=== PATIENT | male | born 1950 ===

== ENCOUNTER 2018-02-01 23:50 | Observation (INO) | payer OTHER, MEDICARE ==
[2018-02-02 01:04] VITALS: BMI 35.6
[2018-02-02] MEDS ORDERED: Dextrose 50% SYRINGE Inj (50 ml) IV PRN (01:04)
[2018-02-02] MEDS ORDERED: Ergocalciferol 50,000 Intl Units Cap PO SCH (01:15)
[2018-02-02] MEDS ORDERED: Heparin25000 units/250ml 1/2NS 25,000 UNITS/250 ML BAG IV SCH (01:15)
[2018-02-02 01:52] LABS: BASO # 0.02 K/mm3 (0.0-2.0); BASO % 0.2 % (0.0-3.0); EOS # 0.2 (0.0-0.7); EOS % 2.8 % (1.5-5.0); GRAN # 4.7 (1.4-6.5); GRAN % 56.6 % (50.0-68.0); HEMOGLOBIN 14.5 g/dL (14.0-18.0); LYMPH # 2.5 (1.2-3.4); LYMPH % 30.4 % (22.0-35.0); MEAN CELL VOLUME 83.7 fl (80.0-105.0); MEAN CORPUSCULAR HEMOGLOBIN 29.2 pg (25.0-35.0); MEAN CORPUSCULAR HGB CONC 34.9 g/dl (31.0-37.0); MEAN PLATELET VOLUME 8.8 fl (7.0-11.0); MONO # 0.8 (0.1-0.6); RBC 4.97 10^6/uL (3.5-6.1); RED CELL DISTRIBUTION WIDTH 14.2 % (11.5-14.5); WHITE BLOOD COUNT 8.3 10^3/ul (4.5-11.0)
[2018-02-02 02:03] LABS: ALB/GLOB RATIO 1.4 (1.1-1.8); ALBUMIN 4.4 g/dL (3.0-4.8); ALT/SGPT 36 U/L (7-56); AST/SGOT 56 U/L (17-59); BLOOD UREA NITROGEN 19 mg/dL (7-21); CALCIUM 9.9 mg/dL (8.4-10.5); GFR AFRICAN-AMERICAN > 60; GFR NON-AFRICAN AMERICAN > 60
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
[2018-02-02] MEDS ORDERED: Dextrose 50% SYRINGE Inj (50 ml) ONE (05:22)
[2018-02-02] MEDS ORDERED: Lidocaine 2% Inj (20ml) ONE (06:38)
[2018-02-02] MEDS ORDERED: Iodixanol 320 MG/ML 100 ML BOTTLE IV ONE (06:39)
[2018-02-02] MEDS ORDERED: Iodixanol 320 MG/ML 200 ML BOTTLE IV ONE (06:39)
[2018-02-02] MEDS ORDERED: Iohexol 350mgl/ml 50 ML ONE (06:39)
[2018-02-02] MEDS ORDERED: Phenylephrine 10 mg/ml Inj ONE (06:41)
[2018-02-02] MEDS ORDERED: Verapamil 2 ML ONE (06:41)
[2018-02-02] MEDS ORDERED: Nitroglycerin 50mg in D5W 50 MG/250 ML BOTTLE IV ONE (06:42)
[2018-02-02] MEDS ORDERED: Adenosine 90 mg/30mL IV ONE (06:49)
[2018-02-02] MEDS ORDERED: Midazolam 2 MG/2 ML VIAL ONE ×2 (07:28→07:33)
[2018-02-02] MEDS ORDERED: Insulin Lispro (humaLOG) MEDIUM Coverage SC SCH (07:30)
--- NOTE | 2018-02-02 09:03 | PCM.BM ---
- Diagnosis (1) NSTEMI (non-ST elevated myocardial infarction) Status: Acute Interventions: 02/02/18 09:00 PTCA/THOM of mid 99% stenosis with 2.5x22 [place] THOM ( post dilatation with 3.0x15 NC balloon ) ( lesion reduction down from 99% down to 0% ) IVUS guided PTCA/THOM of proximal 75% stenosis with 3.5x22 [place] THOM ( lesion reduction from 75% down to 0% ) IVUS/FFR interrogation of proximal LAD ( FFR 0.84 physiologically non- significant , MLA 3.6 mm2 ) DAPT x 1 year GDMT for CAD ( BB, statins, nitrates , acei ) transfer to [facility] in 3 hours
[2018-02-02] MEDS ORDERED: Bacitracin 500 Units/gm Oint Foilpak UD TOP ONE ×2 (09:15→09:19)
--- NOTE | 2018-02-02 11:36 | CARDCATH ---
Copied To: Modesto Bryant MD Attending MD: Modesto Bryant MD PROCEDURE DATE: 02/02/2018 INDICATIONS: Mr. Wolf Dorman is a 67-year-old male who presented to [facility] with complaints of ongoing episodes of chest pain, intermittent in nature for 10 days prior to presentation, associated with shortness of breath, described as pressure-like sensation, 8/10 in intensity, radiating to the left shoulder and neck area. He was ruled in for acute coronary syndrome with [id number] [place] and positive troponins. He was subsequently transferred over to [facility] for urgent cardiac catheterization. PROCEDURE PERFORMED: Left heart catheterization with selective left and right coronary angiogram via left radial arterial approach, 6-Yi left radial arterial access. IVUS and FFR of left anterior descending artery: FFR physiologically nonsignificant at 0.84. IVUS minimal luminal area of 3.6 mm2. IVUS and PCI of proximal and mid RCA. Mid RCA 95% stenosis, deployment of two 5 x 22 Dayday drug-eluting stent post dilatation with a three noncompliant balloon. Regeneration from 90% down to 0% HAZEL-3 flow. IVUS of proximal RCA, high grade, 80% stenosis. Deployment of three 5 x 22 Dayday drug-eluting stent, regeneration down to 0% HAZEL-3 flow. Wrist band for hemostasis. ANGIOGRAPHIC FINDINGS: Left main large-sized vessel, bifurcates into LAD and circ. Left anterior descending is a large-sized vessel, has a proximal 65% stenosis at the bifurcation of the diagonal, proximal ruptured plaque, calcified lesion. IVUS showed minimal luminal area of 3.6. FFR physiologically nonsignificant at 0.84. Diagonal ostial has 65% stenosis. Diag 2 nonobstructed. Distal LAD 60% stenosis. Mid LAD 0% stenosis. Left circumflex, large-sized vessel, runs in the groove, free of any obstructive disease, gave off two medium-size obtuse marginal branches. RCA proximal 80% stenosis. IVUS confirmed minimal luminal area less than 3. Mid RCA 95% stenosis. INTERVENTION: JR4 guide was used to engage the right coronary system. Lesion was crossed with a [place] wire, predilated with a 2 balloon, stented with a 2.5 x 22 mm [place] drug-eluting stent. IVUS, which showed undersized stent at this point was postdilated with a 3 noncompliant balloon. Proximal RCA high-grade lesion stented with a 3.5 x 22 mm Dayday drug-eluting stent. Final angiogram done, regeneration down to 0% HAZEL-3 flow. Subsequently, JL4 guide was used to engage the left coronary system. FFR wire was used to cross the LAD. Interrogation with showed physiologically nonsignificant 0.84. Because of significant haziness, IVUS interrogation of the LAD was done, which showed minimal luminal area of 3.6 and a ruptured plaques. IMPRESSION: Moderate left anterior descending stenosis, physiologically nonsignificant at 0.84. Intracoronary vascular ultrasound interrogation shows minimal luminal area of 3.6. Successful percutaneous transluminal coronary angioplasty, stenting of proximal and mid right coronary artery, deployment of two drug-eluting stents. Normal ejection fraction. RECOMMENDATIONS: Continue dual antiplatelet therapy for one year. Guideline-directed therapy for coronary artery disease. The patient can be transferred back to [facility] in three hours. Modesto Bryant MD cc: Facundo Belle MD in [place]
--- NOTE | 2018-02-02 12:43 | CP.CCUPN ---
<Lisa Whittaker - Last Filed: 02/02/18 12:40> CCU Subjective - Physician Review Events Since Last Encounter (Free Text): Lisa Whittaker, PGY-1 ICU Progress Note Patient seen and examined at bedside. He had successful stenting of proximal and mid RCA with 2 drug eluding stents. Normal EF. Pending transfer to [facility]. Denies CP, SOB, abdominal pain, and urinary complaints. 12 point ROS noted here , otherwise negative. CCU Objective - Vital Signs / Intake & Output Vital Signs (Last 4 hours): Vital Signs Temp Pulse Resp BP Pulse Ox 02/02/18 11:00 98 F 70 14 125/78 98 02/02/18 10:50 70 14 97 02/02/18 10:45 72 12 133/82 98 02/02/18 10:40 70 13 98 02/02/18 10:30 73 12 124/80 100 02/02/18 10:20 78 16 99 02/02/18 10:16 75 11 L 114/51 L 98 02/02/18 10:10 72 98 02/02/18 10:00 71 13 113/84 98 02/02/18 09:50 73 16 97 02/02/18 09:45 71 15 124/84 97 02/02/18 09:44 72 17 99 02/02/18 09:40 70 11 L 98 02/02/18 09:34 72 15 121/78 98 02/02/18 09:30 72 12 99 02/02/18 09:20 70 11 L 97 02/02/18 09:10 68 12 118/78 98 02/02/18 09:09 76 27 H 95 02/02/18 09:00 98.0 F Intake and Output (Last 8hrs): Intake & Output 02/01/18 02/02/18 02/02/18 22:59 06:59 14:59 Intake Total 120 Output Total 700 Balance -580 Weight 214 lb 2 oz Intake: IV 120 Left Antecubital 120 Output: Urine 700 Urine, Voided 700 - Physical Exam Head: Positive for: Atraumatic, Normocephalic Pupils: Positive for: PERRL Extroacular Muscles: Positive for: EOMI Mouth: Positive for: Moist Mucous Membranes Neck: Positive for: Normal Range of Motion Respiratory/Chest: Positive for: Clear to Auscultation, Good Air Exchange. Negative for: Wheezes Cardiovascular: Positive for: Regular Rate and Rhythm, Normal S1, S2, Peripheal Pulses Present Abdomen: Positive for: Normal Bowel Sounds. Negative for: Tenderness, Distention, Rebound, Guarding Back: Positive for: Normal Inspection. Negative for: CVA Tenderness Upper Extremity: Positive for: Normal Inspection, NORMAL PULSES Lower Extremity: Positive for: Normal Inspection. Negative for: Edema Neurological: Positive for: CN II-XII Intact, Speech Normal Skin: Positive for: Warm, Normal Color Psychiatric: Positive for: Alert, Normal Insight - Medications Active Medications: Active Medications Generic Name Dose Route Start Last Admin Trade Name Freq PRN Reason Stop Dose Admin Aspirin 81 mg 02/02/18 10:00 02/02/18 11:19 Aspirin Chewable PO 81 mg DAILY FADI Administration Atorvastatin Calcium 40 mg 02/02/18 17:00 Lipitor PO DIN FADI Dextrose 0 ml 02/02/18 01:04 Dextrose 50% Inj IV STAT PRN Hypoglycemia Protocol Protocol Ergocalciferol 1 cap 02/02/18 01:15 02/02/18 02:07 Drisdol 50,000 Intl Units Cap PO Not Given Q7D FADI Fenofibrate 145 mg 02/02/18 10:00 02/02/18 11:19 Tricor PO 145 mg DAILY FADI Administration Dextrose 1,000 mls @ 0 mls/hr 02/02/18 01:04 Dextrose 5% In Water 1000 Ml IV .Q0M PRN Hypoglycemia Protocol Protocol Per Protocol Insulin Human Lispro 0 units 02/02/18 07:30 02/02/18 12:05 Humalog Med SC Not Given ACHS FADI Protocol Loratadine 10 mg 02/02/18 10:00 02/02/18 11:19 Claritin PO 10 mg DAILY FADI Administration Metoprolol Tartrate 25 mg 02/02/18 07:30 Lopressor PO BRKDIN FADI Montelukast Sodium 10 mg 02/02/18 22:00 Singulair PO HS FADI - Patient Studies Lab Studies: Lab Studies 02/02/18 02/02/18 02/02/18 Range/Units 09:23 01:30 01:30 WBC (4.5-11.0) 10^3/ul RBC (3.5-6.1) 10^6/uL Hgb (14.0-18.0) g/dL Hct (42.0-52.0) % MCV (80.0-105.0) fl MCH (25.0-35.0) pg MCHC (31.0-37.0) g/dl RDW (11.5-14.5) % Plt Count (120.0-450.0) 10^3/uL MPV (7.0-11.0) fl Gran % (50.0-68.0) % Lymph % (Auto) (22.0-35.0) % [place] % (Auto) (1.0-6.0) % Eos % (Auto) (1.5-5.0) % Baso % (Auto) (0.0-3.0) % Gran # (1.4-6.5) Lymph # (Auto) (1.2-3.4) [place] # (Auto) (0.1-0.6) Eos # (Auto) (0.0-0.7) Baso # (Auto) (0.0-2.0) K/mm3 APTT 51.3 H (25.1-36.5) Seconds Sodium 140 (132-148) mmol/L Potassium 4.3 (3.6-5.0) mmol/L Chloride 102 (98-107) mmol/L Carbon Dioxide 29 (21-33) mmol/L Anion Gap 14 (10-20) BUN 19 (7-21) mg/dL Creatinine 1.1 (0.8-1.5) mg/dl Est GFR ( Amer) > 60 Est GFR (Non-Af Amer) > 60 POC Glucose (mg/dL) 152 H (65-110) mg/dL Random Glucose 153 H (70-110) mg/dL Calcium 9.9 (8.4-10.5) mg/dL Phosphorus 4.1 (2.5-4.5) mg/dL Magnesium 2.1 (1.7-2.2) mg/dL Total Bilirubin 0.7 (0.2-1.3) mg/dL AST 56 (17-59) U/L ALT 36 (7-56) U/L Alkaline Phosphatase 79 (38-126) U/L Total Protein 7.5 (5.8-8.3) g/dL Albumin 4.4 (3.0-4.8) g/dL Globulin 3.1 gm/dL Albumin/Globulin Ratio 1.4 (1.1-1.8) 02/02/18 Range/Units 01:30 WBC 8.3 (4.5-11.0) 10^3/ul RBC 4.97 (3.5-6.1) 10^6/uL Hgb 14.5 (14.0-18.0) g/dL Hct 41.6 L (42.0-52.0) % MCV 83.7 (80.0-105.0) fl MCH 29.2 (25.0-35.0) pg MCHC 34.9 (31.0-37.0) g/dl RDW 14.2 (11.5-14.5) % Plt Count 333 (120.0-450.0) 10^3/uL MPV 8.8 (7.0-11.0) fl Gran % 56.6 (50.0-68.0) % Lymph % (Auto) 30.4 (22.0-35.0) % [place] % (Auto) 10.0 H (1.0-6.0) % Eos % (Auto) 2.8 (1.5-5.0) % Baso % (Auto) 0.2 (0.0-3.0) % Gran # 4.70 (1.4-6.5) Lymph # (Auto) 2.5 (1.2-3.4) [place] # (Auto) 0.8 H (0.1-0.6) Eos # (Auto) 0.2 (0.0-0.7) Baso # (Auto) 0.02 (0.0-2.0) K/mm3 APTT (25.1-36.5) Seconds Sodium (132-148) mmol/L Potassium (3.6-5.0) mmol/L Chloride (98-107) mmol/L Carbon Dioxide (21-33) mmol/L Anion Gap (10-20) BUN (7-21) mg/dL Creatinine (0.8-1.5) mg/dl Est GFR ( Amer) Est GFR (Non-Af Amer) POC Glucose (mg/dL) (65-110) mg/dL Random Glucose (70-110) mg/dL Calcium (8.4-10.5) mg/dL Phosphorus (2.5-4.5) mg/dL Magnesium (1.7-2.2) mg/dL Total Bilirubin (0.2-1.3) mg/dL AST (17-59) U/L ALT (7-56) U/L Alkaline Phosphatase (38-126) U/L Total Protein (5.8-8.3) g/dL Albumin (3.0-4.8) g/dL Globulin gm/dL Albumin/Globulin Ratio (1.1-1.8) Laboratory Results - last 24 hr 02/02/18 02/02/18 02/02/18 01:30 01:30 01:30 WBC 8.3 RBC 4.97 Hgb 14.5 Hct 41.6 L MCV 83.7 MCH 29.2 MCHC 34.9 RDW 14.2 Plt Count 333 MPV 8.8 Gran % 56.6 Lymph % (Auto) 30.4 [place] % (Auto) 10.0 H Eos % (Auto) 2.8 Baso % (Auto) 0.2 Gran # 4.70 Lymph # (Auto) 2.5 [place] # (Auto) 0.8 H Eos # (Auto) 0.2 Baso # (Auto) 0.02 APTT 51.3 H Sodium 140 Potassium 4.3 Chloride 102 Carbon Dioxide 29 Anion Gap 14 BUN 19 Creatinine 1.1 Est GFR ( Amer) > 60 Est GFR (Non-Af Amer) > 60 POC Glucose (mg/dL) Random Glucose 153 H Calcium 9.9 Phosphorus 4.1 Magnesium 2.1 Total Bilirubin 0.7 AST 56 ALT 36 Alkaline Phosphatase 79 Total Protein 7.5 Albumin 4.4 Globulin 3.1 Albumin/Globulin Ratio 1.4 02/02/18 09:23 WBC RBC Hgb Hct MCV MCH MCHC RDW Plt Count MPV Gran % Lymph % (Auto) [place] % (Auto) Eos % (Auto) Baso % (Auto) Gran # Lymph # (Auto) [place] # (Auto) Eos # (Auto) Baso # (Auto) APTT Sodium Potassium Chloride Carbon Dioxide Anion Gap BUN Creatinine Est GFR ( Amer) Est GFR (Non-Af Amer) POC Glucose (mg/dL) 152 H Random Glucose Calcium Phosphorus Magnesium Total Bilirubin AST ALT Alkaline Phosphatase Total Protein Albumin Globulin Albumin/Globulin Ratio Fingerstick Blood Sugar Results: 141 Critical Care Progress Note - Nutrition Nutrition: Nutrition Category Date Time Status Heart Healthy Diet [DIET] Diets 02/02/18 Lunch Active Assessment/Plan - Assessment and Plan (Free Text) Assessment: Assessment: 67 M with PMH of HT, HLD, DM2, transferred from [facility] under Dr Bryant for left heart cath today morning. 2 drug eluding stents placed in the RCA successfully and patient is doing well post operatively. Pending transfer to [facility]. Plan: Neuro: -maintain normothermia -AAO x3, moving extremities spontaneously past midline Cardio: -maintain MAP>65 -on metoprolol tartrate 25mg, lipitor, fenofibrate -cardio on consult, Dr Bryant Lungs: -SaO2 >90% -supplementary O2 PRN -on singulair Renal: -maintain euvolemia -avoid nephrotoxic agents, hypochloremia -replace electrolytes as needed -BUN/Cr is 19/1.1 WNL Heme: -Hg today is 14.5 WNL Endo: -maintain euglycemia -on insulin lispro ID: -WBC is 8.3 today WNL, afebrile <Zach Saldivar - Last Filed: 02/02/18 18:47> CCU Objective - Vital Signs / Intake & Output Intake and Output (Last 8hrs): Intake & Output 02/02/18 02/02/18 02/02/18 06:59 14:59 22:59 Intake Total 120 Output Total 700 Balance -580 Weight 214 lb 2 oz Intake: IV 120 Left Antecubital 120 Output: Urine 700 Urine, Voided 700 - Patient Studies Lab Studies: Lab Studies 02/02/18 02/02/18 02/02/18 Range/Units 11:17 09:23 07:50 WBC (4.5-11.0) 10^3/ul RBC (3.5-6.1) 10^6/uL Hgb (14.0-18.0) g/dL Hct (42.0-52.0) % MCV (80.0-105.0) fl MCH (25.0-35.0) pg MCHC (31.0-37.0) g/dl RDW (11.5-14.5) % Plt Count (120.0-450.0) 10^3/uL MPV (7.0-11.0) fl Gran % (50.0-68.0) % Lymph % (Auto) (22.0-35.0) % [place] % (Auto) (1.0-6.0) % Eos % (Auto) (1.5-5.0) % Baso % (Auto) (0.0-3.0) % Gran # (1.4-6.5) Lymph # (Auto) (1.2-3.4) [place] # (Auto) (0.1-0.6) Eos # (Auto) (0.0-0.7) Baso # (Auto) (0.0-2.0) K/mm3 APTT (25.1-36.5) Seconds Sodium (132-148) mmol/L Potassium (3.6-5.0) mmol/L Chloride (98-107) mmol/L Carbon Dioxide (21-33) mmol/L Anion Gap (10-20) BUN (7-21) mg/dL Creatinine (0.8-1.5) mg/dl Est GFR ( Amer) Est GFR (Non-Af Amer) POC Glucose (mg/dL) 149 H 152 H (65-110) mg/dL Random Glucose (70-110) mg/dL Hemoglobin A1c 7.7 H (4.2-6.5) % Calcium (8.4-10.5) mg/dL Phosphorus (2.5-4.5) mg/dL Magnesium (1.7-2.2) mg/dL Total Bilirubin (0.2-1.3) mg/dL AST (17-59) U/L ALT (7-56) U/L Alkaline Phosphatase (38-126) U/L Total Protein (5.8-8.3) g/dL Albumin (3.0-4.8) g/dL Globulin gm/dL Albumin/Globulin Ratio (1.1-1.8) 02/02/18 02/02/18 02/02/18 Range/Units 01:30 01:30 01:30 WBC 8.3 (4.5-11.0) 10^3/ul RBC 4.97 (3.5-6.1) 10^6/uL Hgb 14.5 (14.0-18.0) g/dL Hct 41.6 L (42.0-52.0) % MCV 83.7 (80.0-105.0) fl MCH 29.2 (25.0-35.0) pg MCHC 34.9 (31.0-37.0) g/dl RDW 14.2 (11.5-14.5) % Plt Count 333 (120.0-450.0) 10^3/uL MPV 8.8 (7.0-11.0) fl Gran % 56.6 (50.0-68.0) % Lymph % (Auto) 30.4 (22.0-35.0) % [place] % (Auto) 10.0 H (1.0-6.0) % Eos % (Auto) 2.8 (1.5-5.0) % Baso % (Auto) 0.2 (0.0-3.0) % Gran # 4.70 (1.4-6.5) Lymph # (Auto) 2.5 (1.2-3.4) [place] # (Auto) 0.8 H (0.1-0.6) Eos # (Auto) 0.2 (0.0-0.7) Baso # (Auto) 0.02 (0.0-2.0) K/mm3 APTT 51.3 H (25.1-36.5) Seconds Sodium 140 (132-148) mmol/L Potassium 4.3 (3.6-5.0) mmol/L Chloride 102 (98-107) mmol/L Carbon Dioxide 29 (21-33) mmol/L Anion Gap 14 (10-20) BUN 19 (7-21) mg/dL Creatinine 1.1 (0.8-1.5) mg/dl Est GFR ( Amer) > 60 Est GFR (Non-Af Amer) > 60 POC Glucose (mg/dL) (65-110) mg/dL Random Glucose 153 H (70-110) mg/dL Hemoglobin A1c (4.2-6.5) % Calcium 9.9 (8.4-10.5) mg/dL Phosphorus 4.1 (2.5-4.5) mg/dL Magnesium 2.1 (1.7-2.2) mg/dL Total Bilirubin 0.7 (0.2-1.3) mg/dL AST 56 (17-59) U/L ALT 36 (7-56) U/L Alkaline Phosphatase 79 (38-126) U/L Total Protein 7.5 (5.8-8.3) g/dL Albumin 4.4 (3.0-4.8) g/dL Globulin 3.1 gm/dL Albumin/Globulin Ratio 1.4 (1.1-1.8) Laboratory Results - last 24 hr 02/02/18 02/02/18 02/02/18 01:30 01:30 01:30 WBC 8.3 RBC 4.97 Hgb 14.5 Hct 41.6 L MCV 83.7 MCH 29.2 MCHC 34.9 RDW 14.2 Plt Count 333 MPV 8.8 Gran % 56.6 Lymph % (Auto) 30.4 [place] % (Auto) 10.0 H Eos % (Auto) 2.8 Baso % (Auto) 0.2 Gran # 4.70 Lymph # (Auto) 2.5 [place] # (Auto) 0.8 H Eos # (Auto) 0.2 Baso # (Auto) 0.02 APTT 51.3 H Sodium 140 Potassium 4.3 Chloride 102 Carbon Dioxide 29 Anion Gap 14 BUN 19 Creatinine 1.1 Est GFR ( Amer) > 60 Est GFR (Non-Af Amer) > 60 POC Glucose (mg/dL) Random Glucose 153 H Hemoglobin A1c Calcium 9.9 Phosphorus 4.1 Magnesium 2.1 Total Bilirubin 0.7 AST 56 ALT 36 Alkaline Phosphatase 79 Total Protein 7.5 Albumin 4.4 Globulin 3.1 Albumin/Globulin Ratio 1.4 02/02/18 02/02/18 02/02/18 07:50 09:23 11:17 WBC RBC Hgb Hct MCV MCH MCHC RDW Plt Count MPV Gran % Lymph % (Auto) [place] % (Auto) Eos % (Auto) Baso % (Auto) Gran # Lymph # (Auto) [place] # (Auto) Eos # (Auto) Baso # (Auto) APTT Sodium Potassium Chloride Carbon Dioxide Anion Gap BUN Creatinine Est GFR ( Amer) Est GFR (Non-Af Amer) POC Glucose (mg/dL) 152 H 149 H Random Glucose Hemoglobin A1c 7.7 H Calcium Phosphorus Magnesium Total Bilirubin AST ALT Alkaline Phosphatase Total Protein Albumin Globulin Albumin/Globulin Ratio Critical Care Progress Note - Nutrition Nutrition: Nutrition Category Date Time Status Heart Healthy Diet [DIET] Diets 02/02/18 Lunch Active Attending/Attestation - Attestation I have personally seen and examined this patient.: Yes I have fully participated in the care of the patient.: Yes I have reviewed all pertinent clinical information: Yes Notes (Text): 02/02/18 18:46 67 yo male with ACS, admitted to [facility] for cardiac cath, no s/p PCI. Continue DAP , bb, statins. stable for transfer back to [facility] ccm time 40 min
[2018-02-02 13:06] VITALS: TEMP 97
[2018-02-02 14:07] VITALS: BP 136/68; PULSE 79; RESP 18; O2SAT 96
== END 2018-02-02 18:15 | disposition short-term general hospital (02) ==
LOC: INTOOBSV 23:50 → OBSVTOIN 23:50 → CCU 23:50
PROVIDERS: ADMIT Internal Medicine; ATTEND Internal Medicine Interventional Cardiology
DX: I21.4 Non-ST elevation (NSTEMI) myocardial infarction (principal); I25.10 Atherosclerotic heart disease of native coronary artery without angina pectoris; E11.9 Type 2 diabetes mellitus without complications; E78.5 Hyperlipidemia, unspecified; I10 Essential (primary) hypertension; M17.10 Unilateral primary osteoarthritis, unspecified knee; Z91.14 Patient's other noncompliance with medication regimen
CPT/HCPCS: 80053; 82948; 83036; 83735; 84100; 85025; 85175; 85730; 87081; 92978; 92979; 93458; 93571; 99152; 99153; C1725; C1753; C1769; C1874; C1887; C1894; C9600; G0378; J0153; J1644; J2250; J3010; Q9966; Q9967

== ENCOUNTER 2018-04-29 09:08 | Day surgery (SDC) | payer OTHER ==
[2018-04-29 09:11] VITALS: BMI 36.7
--- NOTE | 2018-04-29 09:33 | ED PDOC ---
Arrival/HPI - General Chief Complaint: Chest Pain Time Seen by Provider: 04/29/18 09:09 Historian: Patient - History of Present Illness Narrative History of Present Illness (Text): 04/29/18 09:33 67 year old male, whose past medical history includes hypertension, hyperlipidemia, diabetes, ACS s/p stents (02/02/18), presents to the emergency department complaining of chest pain for past week. Patient had a stenting of proximal and mid RCA with 2 drug eluding stents by Dr. Bryant on 02/02/18. Patient states he is here to get a cath procedure done today by Dr. Bryant. Patient denies any fever, chills, shortness of breath, nausea, vomiting, diarrhea, urinary symptoms, back pain, neck pain, headache, dizziness, or any other complaints. PMD: Dr. Belle Technical Advisor: Dr. Bryant Time/Duration: 1 week Symptom Onset: Gradual Symptom Course: Unchanged Context: Home Past Medical History - Provider Review Nursing Documentation Reviewed: Yes - Cardiac Hx Cardiac Disorders: Yes Hx Hypertension: Yes - Pulmonary Hx Respiratory Disorders: No - Neurological Hx Neurological Disorder: No - HEENT Hx HEENT Disorder: No - Renal Hx Renal Disorder: No - Endocrine/Metabolic Hx Endocrine Disorders: Yes Hx Diabetes Mellitus Type 2: Yes - Hematological/Oncological Hx Blood Disorders: No - Integumentary Hx Dermatological Disorder: Yes Hx Cellulitis: Yes - Musculoskeletal/Rheumatological Hx Musculoskeletal Disorders: Yes Hx Back Pain: Yes - Gastrointestinal Hx Gastrointestinal Disorders: Yes Hx Diarrhea: Yes - Genitourinary/Gynecological Hx Genitourinary Disorders: No - Psychiatric Hx Psychophysiologic Disorder: No Hx Substance Use: No - Surgical History Hx Coronary Stent: Yes - Anesthesia Hx Anesthesia Reactions: No Hx Malignant Hyperthermia: No - Suicidal Assessment Feels Threatened In Home Enviroment: No Family/Social History - Physician Review Nursing Documentation Reviewed: Yes Family/Social History: No Known Family HX Smoking Status: Never Smoked Hx Alcohol Use: No Hx Substance Use: No Allergies/Home Meds Allergies/Adverse Reactions: Allergies No Known Allergies Allergy (Verified 04/29/18 09:23) Home Medications: Home Meds Medication Instructions Recorded Confirmed Ergocalciferol (Vitamin D2) 50,000 iu PO Q7D 01/30/18 04/29/18 [Vitamin D2] Fenofibrate [Triglide] 160 mg PO DAILY 01/30/18 04/29/18 GlipiZIDE [Glucotrol] 10 mg PO DAILY 01/30/18 04/29/18 MetFORMIN [glucoPHAGE] 750 mg PO BID 01/30/18 04/29/18 Clopidogrel [Plavix] 75 mg PO DAILY 04/16/18 04/29/18 Aspirin [Ecotrin] 325 mg PO DAILY 04/28/18 04/29/18 Fluticasone Nasal [Flonase] 1 spr JAVID DAILY 04/29/18 04/29/18 Loratadine [Allergy Relief] 10 mg PO DAILY PRN 04/29/18 04/29/18 Losartan [Cozaar] 25 mg PO DAILY 04/29/18 04/29/18 Metoprolol Succinate [Toprol Xl] 50 mg PO DAILY 04/29/18 04/29/18 Rosuvastatin Calcium [Crestor] 20 mg PO DAILY 04/29/18 04/29/18 Review of Systems - Physician Review All systems were reviewed & negative as marked: Yes - Review of Systems Constitutional: absent: Fevers, Other (Chills) Respiratory: absent: SOB Cardiovascular: Chest Pain Gastrointestinal: absent: Diarrhea, Nausea, Vomiting Genitourinary Male: absent: Dysuria, Frequency, Hematuria Musculoskeletal: absent: Back Pain, Neck Pain Neurological: absent: Headache, Dizziness Physical Exam Vital Signs Reviewed: Yes Temperature: Afebrile Blood Pressure: Normal Pulse: Regular Respiratory Rate: Normal Appearance: Positive for: Well-Appearing, Non-Toxic, Comfortable Pain Distress: None Mental Status: Positive for: Alert and Oriented X 3 - Systems Exam Head: Present: Atraumatic, Normocephalic Pupils: Present: PERRL Extroacular Muscles: Present: EOMI Conjunctiva: Present: Normal Mouth: Present: Moist Mucous Membranes Neck: Present: Normal Range of Motion Respiratory/Chest: Present: Clear to Auscultation, Good Air Exchange. No: Respiratory Distress, Accessory Muscle Use Cardiovascular: Present: Regular Rate and Rhythm, Normal S1, S2. No: Murmurs Abdomen: No: Tenderness, Distention, Peritoneal Signs Back: Present: Normal Inspection Upper Extremity: Present: Normal Inspection. No: Cyanosis, Edema Lower Extremity: Present: Normal Inspection. No: Edema Neurological: Present: GCS=15, CN II-XII Intact, Speech Normal Skin: Present: Warm, Dry, Normal Color. No: Rashes Psychiatric: Present: Alert, Oriented x 3, Normal Insight, Normal Concentration Medical Decision Making ED Course and Treatment: 04/29/18 09:33 Impression: 67 year old male presents complaining of chest pain for the past week and is here for a cath procedure by Dr. Bryant. Plan: -- Labs -- EKG -- Chest X-ray -- Reassess and disposition Prior Visits: Notes and results from previous visits were reviewed. Progress Notes: 04/29/18 09:16 EKG shows Sinus at 69 BPM with normal axis and intervals. Interpreted by me. 04/29/18 09:[address] Bryant who is aware and agrees with the plan. PROCEDURE: Chest X-ray Dictator : Endy Gordillo MD Report Date : 04/29/2018 10:05:57 IMPRESSION: No active disease. 04/29/18 11:[address] Bryant who states he will do cath procedure early in the afternoon and is unsure if patient needs to be admitted at this point. - Lab Interpretations I have reviewed the lab results: Yes - RAD Interpretation Radiology Orders: 04/29/18 09:18 CHEST PORTABLE [RAD] Stat - EKG Interpretation Interpreted by ED Physician: Yes Type: 12 lead EKG - Scribe Statement The provider has reviewed the documentation as recorded by the Scribe Renée Rodriguez Provider Scribe Attestation: All medical record entries made by the Scribe were at my direction and personally dictated by me. I have reviewed the chart and agree that the record accurately reflects my personal performance of the history, physical exam, medical decision making, and the department course for this patient. I have also personally directed, reviewed, and agree with the discharge instructions and disposition. Disposition/Present on Arrival - Present on Arrival Any Indicators Present on Arrival: No History of DVT/PE: No History of Uncontrolled Diabetes: Yes Urinary Catheter: No History of Decub. Ulcer: No History Surgical Site Infection Following: None - Disposition Have Diagnosis and Disposition been Completed?: Yes Diagnosis: Chest pain Disposition: HOSPITALIZED Disposition Time: 10:30 Condition: GUARDED
--- NOTE | 2018-04-29 10:10 | RAD ---
Date of service: 04/29/2018 HISTORY: chest pain COMPARISON: No prior. FINDINGS: LUNGS: No active pulmonary disease. PLEURA: No significant pleural effusion identified, no pneumothorax apparent. CARDIOVASCULAR: No aortic atherosclerotic calcification present. Normal cardiac size. No pulmonary vascular congestion. No acute findings OSSEOUS STRUCTURES: No significant abnormalities. VISUALIZED UPPER ABDOMEN: Normal. OTHER FINDINGS: None. IMPRESSION: No active disease.
[2018-04-29 10:14] LABS: BASO # 0.02 K/mm3 (0.0-2.0); BASO % 0.3 % (0.0-3.0); EOS # 0.1 (0.0-0.7); EOS % 1.8 % (1.5-5.0); GRAN # 4.74 (1.4-6.5); HEMOGLOBIN 13.7 g/dL (14.0-18.0); LYMPH # 1.9 (1.2-3.4); LYMPH % 25.5 % (22.0-35.0); MEAN CORPUSCULAR HGB CONC 34.2 g/dl (31.0-37.0); MONO # 0.5 (0.1-0.6); MONO % 7.4 % (1.0-6.0); RBC 4.72 10^6/uL (3.5-6.1); RED CELL DISTRIBUTION WIDTH 14.1 % (11.5-14.5); WHITE BLOOD COUNT 7.3 10^3/uL (4.5-11.0)
[2018-04-29 10:24] LABS: ALB/GLOB RATIO 1.6 (1.1-1.8); ALBUMIN 4.3 g/dL (3.0-4.8); ALT/SGPT 30 U/L (7-56); AST/SGOT 29 U/L (17-59); BLOOD UREA NITROGEN 19 mg/dL (7-21); CALCIUM 9.4 mg/dL (8.4-10.5); GFR NON-AFRICAN AMERICAN > 60
[2018-04-29 10:35] LABS: TROPONIN I < 0.01 ng/mL
[2018-04-29 10:38] LABS: INR 1.02; PARTIAL THROMBOPLASTIN TIME 26.5 Seconds (25.1-36.5); PROTHROMBIN TIME 11.7 SECONDS (9.4-12.5)
[2018-04-29] MEDS ORDERED: Lidocaine 2% PF (10 ml) Amp ONE (16:23)
[2018-04-29] MEDS ORDERED: Nitroglycerin 50mg in D5W 50 MG/250 ML BOTTLE IV ONE (16:23)
[2018-04-29] MEDS ORDERED: Iodixanol 320 MG/ML 100 ML BOTTLE IV ONE (16:23)
[2018-04-29] MEDS ORDERED: Iohexol 350mgl/ml 50 ML ONE (16:23)
[2018-04-29] MEDS ORDERED: Phenylephrine 10 mg/ml Inj ONE (16:23)
[2018-04-29] MEDS ORDERED: Iodixanol 320 MG/ML 200 ML BOTTLE IV ONE (16:23)
[2018-04-29] MEDS ORDERED: Adenosine 90 mg/30mL IV ONE (16:33)
[2018-04-29] MEDS ORDERED: Verapamil 0 ML ONE (16:34)
[2018-04-29] MEDS ORDERED: Midazolam 2 MG/2 ML VIAL ONE ×3 (16:43→17:31)
[2018-04-29 18:06] VITALS: O2SAT 97
--- NOTE | 2018-04-29 18:48 | CARD ---
APPROVED REPORT Date of service: 04/29/2018 EKG Measurement Heart [id number] <Conclusion> Normal sinus rhythm Normal ECG
--- NOTE | 2018-04-29 21:45 | CARDCATH ---
PROCEDURE DATE: 04/29/2018 INDICATIONS: Wolf Dorman is a 67-year-old male, who was admitted with complaints of chest pain and unstable angina. He was scheduled to undergo cardiac catheterization, but started having chest pains, for which he came to the emergency room. He was recently underwent noninvasive evaluation with stress test, which showed significant ischemia involving the LAD territory and he was therefore brought for further evaluation and treatment. PROCEDURE PERFORMED: Left heart catheterization with selective left and right coronary angiogram via 6-Fijian right femoral arterial access, percutaneous transluminal coronary angioplasty and stenting of proximal left anterior descending, 85% stenosis, deployment of 4 x 22 Dayday drug-eluting stent, regeneration from 75% down to 0% HAZEL 3 flow, 6-Fijian right femoral arterial access, Angio-Seal closure device for hemostasis. ANGIOGRAPHIC FINDINGS: Left main large-sized vessel bifurcates into LAD and left circ. Left circumflex is a large-sized vessel runs in the AV groove, free of any obstructive disease, proximal and mid distal 0% stenosis, gives off a medium-sized obtuse marginal branch, free of any obstructive disease. LAD large-sized vessel, give off two small-sized diagonal branches, has a proximal segment to tandem 75% stenosis. RCA proximal stent patent, mid nonsignificant 40% stenosis, right dominant circulation. Intervention performed using an XB3.5 guide. A Whisper wire was used to negotiate down to the LAD. Lesion was predilated with a 3 balloon and then subsequently stented with a 4 x 22 Dayday drug-eluting stent. Final angiogram done showed regeneration down to 0% HAZEL 3 flow. IMPRESSION: Successful percutaneous transluminal coronary angioplasty and stenting of proximal left anterior descending lesion, deployment of 4 x 22 Dayday drug-eluting stent. Left ventricular ejection fraction normal. End diastolic pressure 18. RECOMMENDATIONS: Continue dual antiplatelet therapy, guideline-directed therapy for CAD. The patient can be discharged home in 4 hours and follow up with me in the office in 1-2 weeks. Modesto Bryant MD
[2018-04-29 23:42] VITALS: BP 133/76; PULSE 68; RESP 20; TEMP 98.6
== END 2018-04-29 23:00 | disposition home or self-care (01) ==
LOC: ED 09:08 → SDS 11:49 → 2RSO 18:24 → SDS 23:00
PROVIDERS: ATTEND Internal Medicine Interventional Cardiology
DX: I25.110 Atherosclerotic heart disease of native coronary artery with unstable angina pectoris (principal); I10 Essential (primary) hypertension; E11.9 Type 2 diabetes mellitus without complications; E78.5 Hyperlipidemia, unspecified; Z79.82 Long term (current) use of aspirin; Z95.5 Presence of coronary angioplasty implant and graft; Z79.84 Long term (current) use of oral hypoglycemic drugs
CPT/HCPCS: 71045; 80053; 82550; 83615; 83735; 84484; 85025; 85610; 85730; 86850; 86900; 93005; 93458; 99152; 99153; C1725; C1760; C1769 ×3; C1874; C1887; C2629; C9600; J1644 ×2; J2250; J3010; Q9966; Q9967 ×2